=== PATIENT | male | born 1965 ===

== ENCOUNTER 2023-01-23 20:25 | Emergency (ER) | payer OTHER ==
[~2023-01-23] VITALS: Ht 182.8 cm; Wt 90.7 kg
[2023-01-23 21:01] LABS: BASO % 0.4 % (0.0-1.0); LYMPH # 0.8 10*3/uL (1.3-4.4); LYMPH % 7.4 % (27.0-41.0); MEAN CELL VOLUME 81.2 fl (80.0-94.0); MEAN CORPUSCULAR HGB 27.5 pg (27.0-31.0); MEAN CORPUSCULAR HGB CONC 33.9 g/dl (33.0-37.0); MEAN PLATELET VOLUME 9.9 fl (9.6-12.3); MONO # 0.7 10*3/uL (0.1-1.0); MONO % 6.8 % (3.0-9.0); NEUT # 8.8 10*3/uL (2.3-7.9); NEUT % 84.8 % (47.0-73.0); PLATELET COUNT AUTOMATED 123 10*3/uL (130-400); RED BLOOD COUNT 3.82 10*6/uL (4.50-5.90); RED CELL DISTRI WIDTH 17.1 % (0-14.5); WHITE BLOOD COUNT 10.4 10*3/uL (4.8-10.8)
[2023-01-23 21:12] LABS: ACT PARTIAL THROMBO TIME 31.9 SECONDS (20.0-32.1)
== END 2023-01-23 22:36 | disposition short-term general hospital (02) ==
LOC: ED 20:25 → EDBD 20:53 → ED 22:36
PROVIDERS: Emergency Medicine
DX: S09.90XA Unspecified injury of head, initial encounter (principal); I16.9 Hypertensive crisis, unspecified; J96.90 Respiratory failure, unspecified, unspecified whether with hypoxia or hypercapnia; R40.4 Transient alteration of awareness; V57.5XXA Driver of pick-up truck or van injured in collision with fixed or stationary object in traffic accident, initial encounter; Y93.89 Activity, other specified; Y92.89 Other specified places as the place of occurrence of the external cause; Y99.8 Other external cause status